=== PATIENT | female | born 2000 | race American Indian/Alaskan Native ===

== ENCOUNTER 2018-07-31 13:14 | Emergency (ER) | payer SELFPAY ==
[2018-07-31 13:21] VITALS: PULSE 107; RESP 16; O2SAT 100
--- NOTE | 2018-07-31 13:37 | ED PDOC ---
HPI: Abdomen Time Seen by Provider: 07/31/18 13:26 Chief Complaint (Nursing): Abdominal Pain Chief Complaint (Provider): Abdominal Pain History Per: Patient History/Exam Limitations: no limitations Onset/Duration Of Symptoms: Intermittent Episodes Location Of Pain/Discomfort: Epigastric, LUQ, LLQ Quality Of Discomfort: Cramping Associated Symptoms: Nausea, Diarrhea. denies: Vomiting, Urinary Symptoms Additional Complaint(s): 18 years old female presents to ER for evaluation of intermittent epigastric and left sided abdominal pain onset 1 week with worsening of pain today. Patient reports 1 episode of nausea, vomiting and diarrhea today. She states pain is worse than period cramps and reports her period just ended yesterday. Patient lives in [place] and she is on vacation here. She denies any urinary sympt oms, change in diet, cough, congestion, runny nose or drinking in the last 2 weeks. Takes percocet for pain from a previous injury. No chest pain, dyspnea. No dysuria. No weakness. Denies etoh. Uses cannabis. PMD: non provided Past Medical History Reviewed: Historical Data, Nursing Documentation, Vital Signs Vital Signs: Last Vital Signs Temp 100.5 F H 07/31/18 13:18 Pulse 107 H 07/31/18 13:18 Resp 16 07/31/18 13:18 BP 113/65 07/31/18 13:18 Pulse Ox 100 07/31/18 13:18 - Medical History PMH: No Chronic Diseases - Surgical History Surgical History: No Surg Hx - Family History Family History: States: Unknown Family Hx - Living Arrangements Living Arrangements: With Family - Social History Current smoker - smoking cessation education provided: No Alcohol: Social Drugs: Cannabis (Marijuana) - Allergies Allergies/Adverse Reactions: Allergies Allergy/AdvReac Type Severity Reaction Status Date / Time No Known Allergies Allergy Verified 07/31/18 13:18 Review of Systems ROS Statement: Except As Marked, All Systems Reviewed And Found Negative ENT: Negative for: Nose Discharge, Nose Congestion Respiratory: Negative for: Cough Gastrointestinal: Positive for: Nausea, Vomiting, Abdominal Pain (Epigastric and left sided), Diarrhea Genitourinary Female: Negative for: Dysuria, Hematuria Physical Exam - Reviewed Nursing Documentation Reviewed: Yes Vital Signs Reviewed: Yes - Physical Exam Appears: Positive for: Non-toxic, No Acute Distress Head Exam: Positive for: ATRAUMATIC, NORMOCEPHALIC Skin: Positive for: Normal Color, Warm, Dry Eye Exam: Positive for: Normal appearance ENT: Positive for: Normal ENT Inspection Neck: Positive for: Normal, Painless ROM, Supple Cardiovascular/Chest: Positive for: Regular Rate, Rhythm. Negative for: Murmur Respiratory: Positive for: Normal Breath Sounds. Negative for: Respiratory Dis tress Gastrointestinal/Abdominal: Positive for: Soft, Tenderness (epigastric and left sided) Back: Positive for: Normal Inspection. Negative for: L CVA Tenderness, R CVA Tenderness Extremity: Positive for: Normal ROM. Negative for: Pedal Edema, Swelling Neurologic/Psych: Positive for: Alert, Oriented (x3) - Laboratory Results Result Diagrams: 07/31/18 14:15 07/31/18 14:15 Interpretation Of Abn Labs: 13.6 wbc - ECG O2 Sat by Pulse Oximetry: 100 (RA) Pulse Ox Interpretation: Normal - Progress ED Course And Treament: 1540: Stable. AAOx3. Dr. Werner to take over care and fu on ct. Medical Decision Making Medical Decision Making: Time: 1337 Initial Plan: --VBG --CT Abd/Pelvis PO a& IV Contrast --Alcohol Serum --Lipase --Urine --Urine dipstick --Bentyl 10 mg PO --NaCl 0.9% 1,000 ml IV --Pepcid 20 mg IVP --Toradol 15 mg IVP --Zofran 4 mg IV --Blood culture --Urine culture --Urinalysis Scribe Attestation: Documented by Anita Juarez, acting as a scribe for Caio Jiang MD. Provider Scribe Attestation: All medical record entries made by the Scribe were at my direction and personally dictated by me. I have reviewed the chart and agree that the record accurately reflects my personal performance of the history, physical exam, medical decision making, and the department course for this patient. I have also personally directed, reviewed, and agree with the discharge instructions and disposition. Disposition - Clinical Impression Clinical Impression: Abdominal pain, Cannabis abuse - Patient ED Disposition Is Patient to be Admitted: Transfer of Care - Disposition Disposition Time: 15:46 Condition: FAIR Patient Signed Over To: Peter Werner
[2018-07-31] MEDS: Sodium Chloride 0.9% 1,000 ML IV STA (14:10)
[2018-07-31] MEDS ORDERED: Iohexol 240 (50 ml) ONE (14:16)
[2018-07-31] MEDS: Iohexol 240 (50 ml) PO ONE (14:20)
[2018-07-31 14:22] LABS: VENOUS BLOOD GAS PCO2 45 mmHg (40-60); VENOUS BLOOD GAS PO2 27 mm/Hg (30-55); VENOUS BLOOD PH 7.38 (7.32-7.43)
[2018-07-31 14:37] LABS: ALB/GLOB RATIO 1.2 (1.0-2.1); ALBUMIN 4.1 g/dL (3.5-5.0); ALT/SGPT 16 U/L (9-52); AST/SGOT 18 U/L (14-36); BLOOD UREA NITROGEN 9 mg/dl (7-17); CALCIUM 9.3 mg/dL (8.4-10.2); GFR NON-AFRICAN AMERICAN > 60; LIPASE 40 U/L (23-300)
[2018-07-31 14:39] LABS: BARBITURATES, UR NEGATIVE (NEGATIVE); BENZODIAZEPINES, UR POSITIVE (NEGATIVE); OPIATES, UR NEGATIVE (NEGATIVE); PHENCYCLIDINE, UR NEGATIVE (NEGATIVE)
[2018-07-31 14:46] LABS: BASO # 0.1 K/uL (0.0-0.2); BASO % 0.4 % (0.0-2.0); EOS % 0.2 % (0.0-4.0); LYMPH # 0.8 K/uL (1.0-4.3); LYMPH % 5.8 % (20.0-40.0); MEAN CELL VOLUME 89.4 fl (81.0-99.0); MEAN CORPUSCULAR HEMOGLOBIN 30.1 pg (27.0-31.0); MEAN CORPUSCULAR HGB CONC 33.7 g/dL (33.0-37.0); MEAN PLATELET VOLUME 10.3 fl (7.2-11.7); MONO # 0.6 K/uL (0.0-0.8); MONO % 4.4 % (0.0-10.0); NEUT # 12.1 K/uL (1.8-7.0); NEUT % 89.2 % (50.0-75.0); PLATELET COUNT 224 K/uL (130-400); RED CELL DISTRIBUTION WIDTH 13.4 % (11.5-14.5); SQUAMOUS EPITHIAL 4 /hpf (0-5); URINE BILIRUBIN NEGATIVE (NEGATIVE); URINE BLOOD NEGATIVE (NEGATIVE); URINE CLARITY CLEAR (Clear); URINE COLOR YELLOW (YELLOW); URINE GLUCOSE (UA) NEG (Normal); URINE LEUKOCYTE ESTERASE NEG Leu/uL (Negative); URINE PROTEIN NEGATIVE (NEGATIVE); URINE UROBILINOGEN 0.2-1.0 mg/dL (0.2-1.0); WHITE BLOOD COUNT 13.6 K/uL (4.8-10.8)
[2018-07-31 15:21] LABS: BANDS 1 % (0-2); LYMPHOCYTE 7 % (20-50); MONOCYTE 5 % (0-10); NEUTROPHIL 87 % (42-75); PLATELET ESTIMATE NORMAL (NORMAL); TOTAL CELLS COUNTED 100
[2018-07-31] MEDS ORDERED: Morphine 4 MG/ML VIAL ONE ×2 (15:45→18:26)
[2018-07-31] MEDS ORDERED: Sodium Chloride 0.9% 50 ML IV ONE (15:51)
[2018-07-31] MEDS ORDERED: Iohexol 300 100 ML IJ ONE (15:51)
[2018-07-31 15:55] LABS: ANISOCYTOSIS SLIGHT
--- NOTE | 2018-07-31 16:12 | ED PDOC ---
- Laboratory Results Result Diagrams: 07/31/18 14:15 07/31/18 14:15 - ECG O2 Sat by Pulse Oximetry: 100 (RA) Pulse Ox Interpretation: Normal - Progress Re-evaluation Time: 19:40 (\) Condition: Re-examined, Improved Medical Decision Making Medical Decision Making: Time: 1600 --Patient signed out to this provider by Dr. Jiang, pending CT abdomen. Time: 17:04 CT AP w/contrast FINDINGS: LOWER THORAX: The visualized lungs are clear. LIVER: Normal in size with homogeneous enhancement. No gross lesion or ductal dilatation. GALLBLADDER AND BILE DUCTS: Well distended. No calcified gallstones, wall thickening or pericholecystic fluid. PANCREAS: Normal in size with homogeneous enhancement. No gross lesion or ductal dilatation. SPLEEN: Normal in size and appearance. ADRENALS: No discrete nodule. KIDNEYS AND URETERS: Normal in size with homogeneous enhancement. No hydronephrosis. No solid mass. VASCULATURE: No aortic aneurysm. BOWEL: There is diffuse circumferential mural thickening in the small bowel, worse in the proximal small bowel. There is also mild dilatation of the proximal small bowel. The colon is normal in caliber and appearance. No obstruction. APPENDIX: Normal appendix. PERITONEUM: No free fluid. No free air. LYMPH NODES: No enlarged lymph nodes. BLADDER: Well distended and normal in appearance. REPRODUCTIVE: The uterus is normal in size. There is a fluid-filled dilated serpiginous structure in the right adnexa and 3.5 x 3.9 cm simple cyst in the right ovary. There is a 3.7 x 3.7 cm simple cyst in the left ovary. BONES: No acute fracture. Within normal limits for the patient's age. OTHER FINDINGS: None. IMPRESSION: 1. Apparent diffuse circumferential mural thickening in the small bowel loops more pronounced in the proximal small bowel loops which are mildly dilated, findings may represent nonspecific infectious/inflammatory enteritis. No evidence for bowel obstruction. 2. Dilated fluid-filled tubular structure in the right adnexa concerning for hydrosalpinx. 3.5 x 3.9 cm simple cyst in the right ovary and 3.7 x 3.7 cm simple cyst in the left ovary. If clinically indicated, correlation with pelvic ultrasound may be performed for definitive evaluation. Time: 18:40 Patient is denying US. Scribe Attestation: Documented by Ana Loving, acting as a scribe for Peter Werner MD Provider Scribe Attestation: All medical record entries made by the Scribe were at my direction and personall y dictated by me. I have reviewed the chart and agree that the record accurately reflects my personal performance of the history, physical exam, medical decision making, and the department course for this patient. I have also personally directed, reviewed, and agree with the discharge instructions and disposition. Disposition Doctor Will See Patient In The: Office Counseled Patient/Family Regarding: Studies Performed, Diagnosis, Need For Followup - Clinical Impression Clinical Impression: Abdominal pain, Cannabis abuse, Enteritis, Ovarian cyst, Hydrosalpinx - POA Present On Arrival: None - Disposition Referrals: [facility] [Outside] Disposition: Routine/Home Disposition Time: 19:43 Condition: GOOD Additional Instructions: LUCIO BERGERON, thank you for letting us take care of you today. Your provider was Peter Werner MD and you were treated for ABD PAIN. The emergency medical care you received today was directed at your acute symptoms. If you were prescribed any medication, please fill it and take as directed. It may take several days for your symptoms to resolve. Return to the Emergency Department if your symptoms worsen, do not improve, or if you have any other problems. Please contact your doctor or call one of the physicians/clinics you have been referred to that are listed on the Patient Visit Information form that is included in your discharge packet. Bring any paperwork you were given at discharge with you along with any medications you are taking to your follow up visit. Our treatment cannot replace ongoing medical care by a primary care provider outside of the emergency department. Thank you for allowing the [facility] team to be part of your care today. If you had an X-Ray or CT scan: A Radiologist will review the ED reading if any change in treatment is needed we will contact you. If you had a blood, urine, or wound culture: It will take several days for the results, if any change in treatment is needed we will contact you. If you had an STI test: It will take 48 hours for the results. Please call after 1 week if you have not heard back. Prescriptions: Dicyclomine [Dicyclomine HCl] 10 mg PO TID #15 cap Ondansetron ODT [Zofran ODT] 4 mg PO Q8 PRN #12 odt PRN Reason: Nausea/Vomiting Instructions: Ovarian Cysts, Diarrhea in Adolescents and Adults
--- NOTE | 2018-07-31 17:08 | CT ---
Date of service: 07/31/2018 PROCEDURE: CT Abdomen and Pelvis with contrast HISTORY: Abdominal pain COMPARISON: None. TECHNIQUE: CT scan of the abdomen and pelvis was performed after administration of intravenous contrast. Oral contrast was not administered. Coronal and sagittal reformatted images were obtained. Contrast dose: 90 mL Omnipaque 300 Radiation dose: Total exam DLP = 292.16 mGy-cm. This CT exam was performed using one or more of the following dose reduction techniques: Automated exposure control, adjustment of the mA and/or kV according to patient size, and/or use of iterative reconstruction technique. FINDINGS: LOWER THORAX: The visualized lungs are clear. LIVER: Normal in size with homogeneous enhancement. No gross lesion or ductal dilatation. GALLBLADDER AND BILE DUCTS: Well distended. No calcified gallstones, wall thickening or pericholecystic fluid. PANCREAS: Normal in size with homogeneous enhancement. No gross lesion or ductal dilatation. SPLEEN: Normal in size and appearance. ADRENALS: No discrete nodule. KIDNEYS AND URETERS: Normal in size with homogeneous enhancement. No hydronephrosis. No solid mass. VASCULATURE: No aortic aneurysm. BOWEL: There is diffuse circumferential mural thickening in the small bowel, worse in the proximal small bowel. There is also mild dilatation of the proximal small bowel. The colon is normal in caliber and appearance. No obstruction. APPENDIX: Normal appendix. PERITONEUM: No free fluid. No free air. LYMPH NODES: No enlarged lymph nodes. BLADDER: Well distended and normal in appearance. REPRODUCTIVE: The uterus is normal in size. There is a fluid-filled dilated serpiginous structure in the right adnexa and 3.5 x 3.9 cm simple cyst in the right ovary. There is a 3.7 x 3.7 cm simple cyst in the left ovary. BONES: No acute fracture. Within normal limits for the patient's age. OTHER FINDINGS: None. IMPRESSION: 1. Apparent diffuse circumferential mural thickening in the small bowel loops more pronounced in the proximal small bowel loops which are mildly dilated, findings may represent nonspecific infectious/inflammatory enteritis. No evidence for bowel obstruction. 2. Dilated fluid-filled tubular structure in the right adnexa concerning for hydrosalpinx. 3.5 x 3.9 cm simple cyst in the right ovary and 3.7 x 3.7 cm simple cyst in the left ovary. If clinically indicated, correlation with pelvic ultrasound may be performed for definitive evaluation.
[2018-07-31 18:34] VITALS: BP 97/53; TEMP 99.4
== END 2018-07-31 19:59 | disposition home or self-care (01) ==
LOC: H.ER 13:14
DX: R10.9 Unspecified abdominal pain (principal); F12.10 Cannabis abuse, uncomplicated; K52.9 Noninfective gastroenteritis and colitis, unspecified; N70.11 Chronic salpingitis; N83.201 Unspecified ovarian cyst, right side
CPT/HCPCS: 74177; 80053; 81003; 81025; 82803; 83690; 85025; 87040; 87086; 96374; 96375; 96376; 99284; G0480; J1885; J2270; J2405; J7030; Q9966; Q9967